=== PATIENT | female | born 1935 | race Caucasian/White ===

== ENCOUNTER 2021-11-25 14:35 | Outpatient (CLI) | payer MEDICARE, OTHER | END 2021-11-25 14:36 | disposition home or self-care (01) | LOC: CSHWCC 14:35 | PROVIDERS: ATTEND Nurse Practitioner Family | DX: R60.0 Localized edema (principal) | CPT/HCPCS: 97139; G0463; 99213 ==

== ENCOUNTER 2022-09-04 17:21 | Inpatient (IN) | payer MEDICARE ==
[2022-09-04 18:57] LABS: ALT (SGPT) 38 U/L (8-55); AST (SGOT) 38 U/L (5-34); Alkaline Phosphatase 94 U/L (40-110); Anion Gap 10 mmol/L (10-20); BUN (Urea Nitrogen) 15 mg/dL (9.8-20.1); Bilirubin, Total 2.2 mg/dL (0.2-1.2); Calc. Creatinine Clearance 0 mL/min (70-130); Calcium 9.2 mg/dL (7.8-10.44); Carbon Dioxide 29 mmol/L (23-31); Chloride 92 mmol/L (98-107); Estimated GFR 87; Globulin 2.5 g/dL (2.4-3.5); Glucose 111 mg/dL (83-110); Protein, Total 6.5 g/dL (5.8-8.1); Sodium 127 mmol/L (136-145)
[2022-09-04 19:01] LABS: #Basophils 0.1 10x3/uL (0.0-0.2); #Eosinphils 0.1 10x3/uL (0.0-0.5); #Monocytes 0.6 10x3/uL (0.0-1.1); #Neutrophils 4.1 10x3/uL (1.5-8.4); %Basophils 0.9 % (0.0-2.0); %Eosinophils 0.9 % (0.0-6.0); %Lymphocytes 15.2 % (18.0-47.0); %Monocytes 10.4 % (0.0-10.0); %Neutrophils 71.9 % (40.0-75.0); Hemoglobin 12.4 g/dL (12.0-15.5); Mean Corpuscular HGB CONC 34.2 g/dL (32.0-36.0); Mean Corpuscular Hemoglobin 33.1 pg (27.0-33.0); Mean Corpuscular Volume 96.8 fl (81.6-98.3); Mean Platelet Volume 9.6 fl (7.4-10.4); Platelet Count 140 10x3/uL (150-450); RBC Distribution Width 16.8 % (11.5-14.5); Red Blood Cell (RBC) Count 3.75 10x6/uL (3.90-5.03); White Blood Cell (WBC) Count 5.7 10x3/uL (3.5-10.5)
[2022-09-04] MEDS ORDERED: cefTRIAXone\\ROCEPHIN 1 GM VIAL ONE (19:31)
[2022-09-04] MEDS ORDERED: Vancomycin 1 GM VIAL ONE (19:56)
[2022-09-04] MEDS ORDERED: Senokot S 8.6-50 MG TAB PO PRN (21:44)
[2022-09-04] MEDS ORDERED: Calcium Carbonate 500 MG ChewTAB PO PRN (21:44)
[2022-09-04] MEDS ORDERED: Ondansetron PF 4 MG/2 ML Vial IVP PRN (21:44)
[2022-09-04] MEDS ORDERED: Pharmacy to Dose ABX/VANCOMYCIN IVPB PRN (22:33)
[2022-09-04] MEDS ORDERED: Sodium Chloride 0.9% 500 ML IV SCH (23:59)
[2022-09-05 01:02] VITALS: BMI 22.6
[2022-09-05 05:28] LABS: Anion Gap 9 mmol/L (10-20); BUN (Urea Nitrogen) 12 mg/dL (9.8-20.1); Calc. Creatinine Clearance 73 mL/min (70-130); Carbon Dioxide 31 mmol/L (23-31); Chloride 97 mmol/L (98-107); Estimated GFR 88; Glucose 105 mg/dL (83-110); Potassium 4.8 mmol/L (3.5-5.1); Sodium 132 mmol/L (136-145)
[2022-09-05] MEDS: Acetaminophen 325 MG TAB PO PRN (05:56)
[2022-09-05] MEDS ORDERED: Spironolactone 25 MG TAB PO SCH (08:00)
[2022-09-05] MEDS: Vancomycin HCl 750 MG in Sodium Chloride 0.9% 250 ML 250 ML IVPB SCH ×2 (09:11→21:28)
[2022-09-05] MEDS: Multivitamin W/ Minerals 1 TAB PO SCH (09:11)
[2022-09-05] MEDS: Metoprolol Tartrate 50 MG TAB PO SCH ×2 (09:12→21:28)
[2022-09-05] MEDS: Losartan 25 MG TAB PO SCH (09:12)
[2022-09-05] MEDS: Digoxin 0.25 MG TAB PO SCH (09:12)
[2022-09-05] MEDS: cefTRIAXone\\ROCEPHIN 1 GM in Sodium Chloride 0.9% 100 ML IVPB SCH (18:26)
[2022-09-05] MEDS: Apixaban 5 MG TAB PO SCH (21:28)
[2022-09-05] MEDS ORDERED: ALPRAZolam 0.5 MG TAB PO SCH (22:30)
[2022-09-06] MEDS: Acetaminophen 325 MG TAB PO PRN ×2 (01:46→22:51)
[2022-09-06 07:23] LABS: Vancomycin, Trough 8.4 ug/mL
[2022-09-06] MEDS: Losartan 25 MG TAB PO SCH (08:46)
[2022-09-06] MEDS: Multivitamin W/ Minerals 1 TAB PO SCH (08:46)
[2022-09-06] MEDS: Metoprolol Tartrate 50 MG TAB PO SCH ×2 (08:46→20:30)
[2022-09-06] MEDS: Digoxin 0.25 MG TAB PO SCH (08:46)
[2022-09-06] MEDS: Vancomycin HCl 1 GM in Sodium Chloride 0.9% 250 ML 250 ML IVPB SCH ×2 (08:46→20:40)
[2022-09-06] MEDS: Apixaban 5 MG TAB PO SCH ×2 (08:46→20:29)
[2022-09-06] MEDS: cefTRIAXone\\ROCEPHIN 1 GM in Sodium Chloride 0.9% 100 ML IVPB SCH (13:57)
[2022-09-06 15:28] LABS: SARS-CoV-2 NAA Rapid Test Not Detected (NotDetected)
[2022-09-06] MEDS: ALPRAZolam 0.5 MG TAB PO SCH (20:29)
[2022-09-06] MEDS ORDERED: Losartan 25 MG TAB PO SCH (21:00)
[2022-09-07] MEDS: Acetaminophen 325 MG TAB PO PRN ×2 (03:42→21:18)
[2022-09-07] MEDS ORDERED: ALPRAZolam 0.25 MG TAB PO SCH (06:00)
[2022-09-07 07:48] LABS: #Eosinphils 0.1 10x3/uL (0.0-0.5); #Monocytes 0.6 10x3/uL (0.0-1.1); #Neutrophils 5.3 10x3/uL (1.5-8.4); %Basophils 0.4 % (0.0-2.0); %Eosinophils 0.7 % (0.0-6.0); %Lymphocytes 12.1 % (18.0-47.0); %Monocytes 9.2 % (0.0-10.0); %Neutrophils 77.2 % (40.0-75.0); Hemoglobin 10.9 g/dL (12.0-15.5); Mean Corpuscular HGB CONC 32.7 g/dL (32.0-36.0); Mean Corpuscular Hemoglobin 32.2 pg (27.0-33.0); Mean Corpuscular Volume 98.5 fl (81.6-98.3); Mean Platelet Volume 9.9 fl (7.4-10.4); Platelet Count 127 10x3/uL (150-450); RBC Distribution Width 16.4 % (11.5-14.5); Red Blood Cell (RBC) Count 3.38 10x6/uL (3.90-5.03); White Blood Cell (WBC) Count 6.9 10x3/uL (3.5-10.5)
[2022-09-07 08:15] LABS: Anion Gap 12 mmol/L (10-20); BUN (Urea Nitrogen) 15 mg/dL (9.8-20.1); Calc. Creatinine Clearance 78 mL/min (70-130); Calcium 8.6 mg/dL (7.8-10.44); Carbon Dioxide 24 mmol/L (23-31); Chloride 99 mmol/L (98-107); Estimated GFR 89; Glucose 150 mg/dL (83-110); Potassium 3.6 mmol/L (3.5-5.1); Sodium 131 mmol/L (136-145)
[2022-09-07] MEDS ORDERED: Vancomycin 1 GM VIAL ONE (08:24)
[2022-09-07] MEDS: Apixaban 5 MG TAB PO SCH ×2 (08:24→21:18)
[2022-09-07] MEDS: CO Q-10 CAPSULE 50 MG PO SCH ×2 (08:24→21:18)
[2022-09-07] MEDS: Vancomycin HCl 1 GM in Sodium Chloride 0.9% 250 ML 250 ML IVPB SCH ×2 (08:27→21:17)
[2022-09-07] MEDS: Cholecalciferol 1,000 UNITS (25 MCG) TAB PO SCH (08:29)
[2022-09-07] MEDS: Folic Acid 1 MG TAB PO SCH ×2 (08:31→21:18)
[2022-09-07] MEDS: Digoxin 0.25 MG TAB PO SCH (08:32)
[2022-09-07] MEDS: Multivitamin W/ Minerals 1 TAB PO SCH (08:44)
[2022-09-07] MEDS: Losartan Potassium 50 MG TAB PO SCH (08:44)
[2022-09-07] MEDS: Metoprolol Tartrate 50 MG TAB PO SCH ×2 (08:44→21:18)
[2022-09-07] MEDS: cefTRIAXone\\ROCEPHIN 1 GM in Sodium Chloride 0.9% 100 ML IVPB SCH (17:00)
[2022-09-07] MEDS ORDERED: cefTRIAXone\\ROCEPHIN 1 GM VIAL ONE (17:06)
[2022-09-07 19:53] LABS: Vancomycin, Trough 10.6 ug/mL
[2022-09-07] MEDS ORDERED: Losartan 25 MG TAB PO SCH (21:00)
[2022-09-07] MEDS: ALPRAZolam 0.5 MG TAB PO SCH (21:17)
[2022-09-08 06:22] LABS: #Eosinphils 0.1 10x3/uL (0.0-0.5); #Monocytes 0.7 10x3/uL (0.0-1.1); #Neutrophils 4.7 10x3/uL (1.5-8.4); %Basophils 0.6 % (0.0-2.0); %Eosinophils 1.1 % (0.0-6.0); %Lymphocytes 14.2 % (18.0-47.0); %Monocytes 10.8 % (0.0-10.0); %Neutrophils 73.1 % (40.0-75.0); Hemoglobin 11.3 g/dL (12.0-15.5); Mean Corpuscular HGB CONC 33.4 g/dL (32.0-36.0); Mean Corpuscular Hemoglobin 32.8 pg (27.0-33.0); Mean Platelet Volume 9.8 fl (7.4-10.4); Platelet Count 127 10x3/uL (150-450); RBC Distribution Width 16.2 % (11.5-14.5); Red Blood Cell (RBC) Count 3.45 10x6/uL (3.90-5.03); White Blood Cell (WBC) Count 6.5 10x3/uL (3.5-10.5)
[2022-09-08 06:44] LABS: Anion Gap 12 mmol/L (10-20); BUN (Urea Nitrogen) 14 mg/dL (9.8-20.1); Calc. Creatinine Clearance 94 mL/min (70-130); Calcium 8.6 mg/dL (7.8-10.44); Carbon Dioxide 24 mmol/L (23-31); Chloride 99 mmol/L (98-107); Estimated GFR 93; Glucose 121 mg/dL (83-110); Potassium 3.5 mmol/L (3.5-5.1); Sodium 131 mmol/L (136-145)
[2022-09-08] MEDS: Acetaminophen 325 MG TAB PO PRN (08:59)
[2022-09-08] MEDS: Metoprolol Tartrate 50 MG TAB PO SCH (09:01)
[2022-09-08] MEDS: Folic Acid 1 MG TAB PO SCH (09:02)
[2022-09-08] MEDS: CO Q-10 CAPSULE 50 MG PO SCH (09:04)
[2022-09-08] MEDS: Cholecalciferol 1,000 UNITS (25 MCG) TAB PO SCH (09:04)
[2022-09-08] MEDS: Apixaban 5 MG TAB PO SCH (09:06)
[2022-09-08] MEDS: Digoxin 0.25 MG TAB PO SCH (09:07)
[2022-09-08] MEDS: Multivitamin W/ Minerals 1 TAB PO SCH (09:10)
[2022-09-08] MEDS: Losartan Potassium 50 MG TAB PO SCH (09:10)
[2022-09-08] MEDS: Vancomycin HCl 1 GM in Sodium Chloride 0.9% 250 ML 250 ML IVPB SCH (09:14)
[2022-09-08 11:47] VITALS: TEMP 98.4
[2022-09-08] MEDS ORDERED: Potassium Chloride 20 MEQ TAB PO SCH (12:00)
[2022-09-08] MEDS: cefTRIAXone\\ROCEPHIN 1 GM in Sodium Chloride 0.9% 100 ML IVPB SCH (12:03)
[2022-09-08 16:50] VITALS: BP 155/87
== END 2022-09-08 15:00 | disposition home health service (06) | DRG 603 ==
LOC: CSHERS 17:21 → CSHTELE 23:30 → OBSVTOIN 09-07 13:37
PROVIDERS: ADMIT Student in an Organized Health Care Education/Training Program; ATTEND Family Medicine
DX: L03.116 Cellulitis of left lower limb (principal); E87.1 Hypo-osmolality and hyponatremia; I87.2 Venous insufficiency (chronic) (peripheral); I83.028 Varicose veins of left lower extremity with ulcer other part of lower leg; I10 Essential (primary) hypertension; I48.0 Paroxysmal atrial fibrillation; L97.529 Non-pressure chronic ulcer of other part of left foot with unspecified severity; E78.2 Mixed hyperlipidemia; I49.5 Sick sinus syndrome; I25.10 Atherosclerotic heart disease of native coronary artery without angina pectoris; I36.1 Nonrheumatic tricuspid (valve) insufficiency; I34.0 Nonrheumatic mitral (valve) insufficiency; F41.9 Anxiety disorder, unspecified; Z88.8 Allergy status to other drugs, medicaments and biological substances; Z95.0 Presence of cardiac pacemaker; Z85.72 Personal history of non-Hodgkin lymphomas; Z79.899 Other long term (current) drug therapy; Z88.2 Allergy status to sulfonamides; Z90.710 Acquired absence of both cervix and uterus; Z86.718 Personal history of other venous thrombosis and embolism; Z85.820 Personal history of malignant melanoma of skin; Z90.722 Acquired absence of ovaries, bilateral; Z20.822 Contact with and (suspected) exposure to COVID-19; Z98.890 Other specified postprocedural states; G89.29 Other chronic pain; K21.9 Gastro-esophageal reflux disease without esophagitis; M19.90 Unspecified osteoarthritis, unspecified site
CPT/HCPCS: 36415; 80048; 80053; 80202; 83605; 84443; 85025; 93970; 96365; 96366; 96367; 96372; 96376; 97139; G0378; J0696; J1650; J3370; J3490; J7030; J7050; U0002